=== PATIENT | male | born 1975 | race Caucasian/White ===

== ENCOUNTER 2020-02-02 22:30 | Emergency (ER) | payer SELFPAY ==
[2020-02-02 22:39] VITALS: BP 136/102; PULSE 105; RESP 18; TEMP 37; O2SAT 99
--- NOTE | 2020-02-02 22:51 | PC.NURSE ---
Pt states that is in no pain but hasnt slept in days . States he took 1mg clonazepam yesterday to help him sleep but it didnt work. He states he has slept only 2 hours per night for the past several nights.
--- NOTE | 2020-02-02 23:03 | ED.PSYCH ---
HPI - Psych General Chief Complaint: Psychiatric Symptoms <Singh Palm MD - Last Filed: 02/04/20 19:38> Stated Complaint: suicidal ideation <Singh Palm MD - Last Filed: 02/04/20 19:38> Time Seen by Provider: 02/02/20 22:59 <Singh Palm MD - Last Filed: 02/04/20 19:38> History of Present Illness HPI Narrative: 44 yo male with h/o Bipolar disorder presents c/o suicidal ideations. He reports that he has been having marital problems recently which have caused him to be depressed. Tonight he was at his house alone and drinking heavily and he was considering taking his 's klonapin in an attempt to kill himself. He denies following through on this plan. No past suicide attempts. He does not take his psychiatric medications regularly. History limited by intoxication <Singh Palm MD - Last Filed: 02/04/20 19:38> Related Data Allergies/Adverse Reactions: Allergies Allergy/AdvReac Type Severity Reaction Status Date / Time No Known Allergies Allergy Verified 07/04/19 07:33 <Singh Palm MD - Last Filed: 02/04/20 19:38> Review of Systems Review of Systems: All systems reviewed & are unremarkable except as noted in HPI and below <Singh Palm MD - Last Filed: 02/04/20 19:38> Constitutional: Constitutional: Denies fever(s) <Singh Palm MD - Last Filed: 02/04/20 19:38> Cardiovascular: Cardiovascular: Denies chest pain <Singh Palm MD - Last Filed: 02/04/20 19:38> Respiratory: Respiratory: Denies dyspnea <Singh Palm MD - Last Filed: 02/04/20 19:38> Psychiatric: Psychiatric: Reports depression and Reports suicidal ideation <Singh Palm MD - Last Filed: 02/04/20 19:38> [facility] Social History Social History: Social History Gender identity (if verbalized by the patient): Male <Singh Palm MD - Last Filed: 02/04/20 19:38> Exam Const: General: healthy appearing, no acute distress and alert <Singh Palm MD - Last Filed: 02/04/20 19:38> Orientation/consciousness: patient oriented x3 <Singh Palm MD - Last Filed: 02/04/20 19:38> HENMT: Head: normal to inspection <Singh Palm MD - Last Filed: 02/04/20 19:38> Resp: Effort & Inspection: normal respiratory effort <Singh Palm MD - Last Filed: 02/04/20 19:38> Auscultation: clear to auscultation bilaterally <Singh Palm MD - Last Filed: 02/04/20 19:38> Cardio: Rate: tachycardic <Singh Palm MD - Last Filed: 02/04/20 19:38> Rhythm: regular rhythm <Singh Palm MD - Last Filed: 02/04/20 19:38> GI: GI Palp: Yes Soft to palpation and No Tenderness to palpation present (GI) <Singh Palm MD - Last Filed: 02/04/20 19:38> Neuro: General: patient oriented x3 and moves all extremities <Singh Palm MD - Last Filed: 02/04/20 19:38> Speech: Abnormal speech present slurred <Singh Palm MD - Last Filed: 02/04/20 19:38> Extrem: General: normal to inspection <Singh Palm MD - Last Filed: 02/04/20 19:38> Course Reevaluation(s) Reevaluation #1: PAtient is up pacing the room. He states he is feeling anxious and shaky. He states he has history of anxiety but he thinks he may be detoxing. He denies history of Dts. I will order librium. He states he is not homicidal or suicidal <Tisha Simms MD - Last Filed: 02/03/20 18:13> Date: 02/03/20 <Tisha Simms MD - Last Filed: 02/03/20 18:13> Time: 08:01 <Tisha Simms MD - Last Filed: 02/03/20 18:13> Reevaluation #2: Patient was assessed by Crisis with safety contract. PAtient denies being suicidal. He has family/friend at bedside. PAtient is not tremulous at time. <Tisha Simms MD - Last Filed: 02/03/20 18:13> Date: 02/03/20 <Tisha Simms MD - Last Filed: 02/03/20 18:13> Time: 17:46 <Tisha Simms MD - Last File
[2020-02-02 23:46] LABS: Basophils Percent Auto 0.7 % (0.2-1.2); Eosinophils Absolute Auto 0.1 K/mm3 (0-0.3); Eosinophils Percent Auto 2.2 % (0-4.4); Hematocrit 47.8 % (42.0-52.0); Hemoglobin 16.8 g/dL (14.0-18.0); Immature Granulocyte Absolute 0.01 K/mm3 (0.00-0.031); Immature Granulocyte Percent A 0.2 % (0-0.5); Lymphocytes Absolute Auto 1.88 K/mm3 (0.9-3.2); Lymphocytes Percent Auto 32.3 % (18.3-44.2); Mean Corpuscular HGB Conc 35.1 g/dl (32-36); Mean Corpuscular Hemoglobin 31.6 pg (26-34); Mean Platelet Volume 8.3 fl (7.4-10.4); Monocytes Absolute Auto 0.4 K/mm3 (0.1-0.6); Monocytes Percent Auto 6.5 % (2.6-8.5); Neutrophils Absolute Auto 3.4 K/mm3 (1.3-6.7); Neutrophils Percent Auto 58.1 % (45.5-73.1); Platelet Count Result 131 k/mm3 (150-375); Red Blood Count 5.31 M/mm3 (4.6-6.20); Red Cell Distribution Width 13.5 % (11.5-14.5); White Blood Count 5.8 K/mm3 (4.5-10.0)
--- NOTE | 2020-02-02 23:53 | PC.NURSE ---
maria de jesus rich [phone] friend, give call with updates
[2020-02-02 23:55] LABS: Add Urine Microscopic? NO; Appearance Urine Clear (Clear); Bilirubin Urine Negative (Negative); Blood Urine Negative (Negative); Color Urine Yellow (Yellow); Glucose Urine UA Negative (Negative); Ketones Urine Negative (Negative); Leukocyte Esterase Ur Negative LEU/UL (Negative); Nitrate Urine Negative (Negative); Protein Urine Negative (Negative); Urobilinogen Urine Negative mg/dL (<2.0)
[2020-02-02 23:59] LABS: Alanine Aminotransferase 39 U/L (4-50); Albumin Level 4.7 g/dL (3.5-5.1); Alkaline Phosphatase 78 U/L (38-126); Aspartate Amino Transferase 43 U/L (17-59); Bilirubin,Total 0.4 mg/dL (0.2-1.3); Blood Urea Nitrogen 6 mg/dL (9-20); Calcium 8.6 mg/dL (8.4-10.2); Carbon Dioxide 24 mmol/L (22-30); Chloride 104 mmol/L (98-107); Estimated Glomerular Filt Rate > 60; Glucose 91 mg/dL (75-110); Potassium 3.7 mmol/L (3.4-5.0); Sodium 140 mmol/L (137-145)
[2020-02-03 00:13] LABS: Amphetamine Screen Urine Negative (Negative); Barbiturate Screen Urine Negative (Negative); Benzodiazepines Screen Urine Negative (Negative); Cannabinoid Screen Urine Negative (Negative); Cocaine Screen Urine Negative (Negative); Methadone Screen Urine Negative (Negative); Opiate Screen Urine Negative (Negative); Phencyclidine Screen Urine Negative (Negative)
[2020-02-03 00:20] LABS: Ethanol 356 mg/dL (<10)
[2020-02-03 00:30] LABS: Thyroid Stimulating Hormone 0.779 uIU/mL (0.465-4.680)
[2020-02-03 02:11] VITALS: BP 147/95; PULSE 94; RESP 14; O2SAT 99
[2020-02-03] MEDS: NICOTINE (*PBKC) 21 MG PATCH 1 PATCH TRANSDERM (04:57)
[2020-02-03 06:30] VITALS: BP 131/82; PULSE 77; RESP 20; O2SAT 99
[2020-02-03 07:25] VITALS: BP 145/99; PULSE 91; RESP 18; TEMP 36.5; O2SAT 98
--- NOTE | 2020-02-03 07:37 | PC.NURSE ---
This RN walked into pts room and found pt walking around in room. Pt states he is anxious and has a drinking problem. I asked pt if he wanted breakfast and he stated I don't think i could eat anything. Informed pt that if he needed anything to let me know.
--- NOTE | 2020-02-03 08:00 | ECG_ITS ---
Measurements Intervals [place] Rate: 75 P: 58 ND: 177 QRS: 20 QRSD: 90 T: 37 QT: 413 QTc: 462 Interpretive Statements SINUS RHYTHM INCOMPLETE RIGHT BUNDLE BRANCH BLOCK BASELINE WANDER- V2-V3 BORDERLINE ECG Electronically Signed On 02-05-2020 7:01:13 CDT by Uriel Ortiz D.O.
[2020-02-03] MEDS: CHLORDIAZEPOXIDE 25 MG CAPSULE 50 MG PO ×2 (08:11→13:54)
--- NOTE | 2020-02-03 08:30 | PC.NURSE ---
Pt requested to use phone to call friend.
--- NOTE | 2020-02-03 10:23 | PC.NURSE ---
Pt standing at door, asked when he thinks he will be able to go home. I informed pt that we will redraw his blood alcohol at around 1400 to see where it is at. Pt stated ok
--- NOTE | 2020-02-03 10:47 | PC.NURSE ---
Support person here to see pt.
[2020-02-03] MEDS: ONDANSETRON HCL ODT 4 MG TABLET 8 MG PO (13:54)
--- NOTE | 2020-02-03 14:00 | PC.NURSE ---
Pt standing in room eating lunch with friend in room. Sitter still at bedside.
--- NOTE | 2020-02-03 14:00 | PC.NURSE ---
Crisis is here to see pt
[2020-02-03 14:41] LABS: Ethanol < 10 mg/dL (<10)
--- NOTE | 2020-02-03 15:15 | PC.NURSE ---
Called crisis and spoke with Saida in regards to pt. Sadia states that she will send someone to talk to pt.
[2020-02-03 18:12] VITALS: BP 150/86; PULSE 96; RESP 18; TEMP 37.2; O2SAT 99
[2020-02-03 18:13] VITALS: BP 150/86; PULSE 96; RESP 18; TEMP 37.2; O2SAT 100
== END 2020-02-03 18:14 | disposition home or self-care (01) ==
PROVIDERS: Emergency Medicine; Emergency Provider General Practice
DX: F10.239 Alcohol dependence with withdrawal, unspecified (principal); F10.229 Alcohol dependence with intoxication, unspecified; Y90.8 Blood alcohol level of 240 mg/100 ml or more; I45.10 Unspecified right bundle-branch block
CPT/HCPCS: 36415; 80053; 80307; 81003; 84443; 85025; 93005; 99284; A9270

== ENCOUNTER 2022-05-21 17:25 | Emergency (ER) | payer OTHER, SELFPAY ==
[2022-05-21 17:35] VITALS: BP 161/98; PULSE 83; RESP 18; TEMP 36.7; O2SAT 100
--- NOTE | 2022-05-21 17:45 | ED.DENTAL ---
HPI - Dental/Oral General Chief complaint: Dental/Oral Stated complaint: Toothache Lt Side Source: patient History of Present Illness HPI Narrative: This is a 46-year-old male who presented to urgent care with complaints of left lower tooth pain. According to patient he started experiencing left lower tooth pain a couple of days ago. He does have a dental appointment. His dentist recommended that he come to our urgent care to get antibiotic treatment for possible dental abscess. The patient denies SOB, CP, palpitation, extremity numbness, lightheadedness, dizziness, constipation, diarrhea, chills, or fever. Patient reports pain to the 18th tooth MD Complaint: tooth pain Related Data Home Medications Medication Instructions Recorded Confirmed carbamazepine 200 mg 200 mg PO DAILY 05/21/22 05/21/22 capsule,extended release [id number] naltrexone 50 mg tablet 50 mg PO BID 05/21/22 05/21/22 olanzapine 5 mg disintegrating 5 mg PO DAILY 05/21/22 05/21/22 tablet quetiapine 200 mg tablet 200 mg PO DAILY 05/21/22 05/21/22 Allergies Allergy/AdvReac Type Severity Reaction Status Date / Time No Known Allergies Allergy Verified 05/21/22 17:32 Review of Systems Review of Systems: A 14 organ system Review of Systems was performed and pertinent positives included in the HPI, otherwise remaining ROS is negative. [facility] Social History Social History Gender identity (if verbalized by the patient): Male Exam Narrative: GENERAL: This is a well-nourished, well-developed patient, in no apparent distress. HEAD: normocephalic, atraumatic. EYES: PERRL. Sclera clear/white. Vision is grossly intact. EARS: External ears normal, auditory canals clear and without drainage, TMs normal without perforation. Hearing grossly intact. NOSE: External nose normal with no obvious nasal discharge, nares without redness, no rhinorrhea. THROAT: Mucous membranes moist, posterior pharynx clear. NECK: Neck supple, non-tender without lymphadenopathy, masses or thyromegaly. CARDIOVASCULAR: Regular rate and rhythm without murmurs, gallops, or rubs. RESPIRATORY: Clear to auscultation. Breath sounds equal bilaterally. No wheezes, rales, or rhonchi. GASTROINTESTINAL: Abdomen soft, non-tender, nondistended. Bowel sounds are active. No hepato-splenomegaly, or palpable masses. No guarding. SKIN: warm, intact with no suspicious lesions or rash, good texture and turgor. NEURO: awake, alert, and oriented to person, place and time. There were no obvious focal neurologic abnormalities. EXTREMITIES: Normal range of motion. No edema. No calf tenderness. Course Course Emergency Course: Patient will receive Augmentin x10 days. He was also given hydrochlorothiazide for hypertension. Patient instructed to take his blood pressure daily and give report to his primary care physician for possible med adjustment. Patient does not currently have a primary care physician he was given a list of primary care physician. Level of Care: Express Care Visit Vital Signs Vital signs: Vital Signs Temperature 98.0 F 05/21/22 17:35 Pulse Rate 83 05/21/22 17:35 Respiratory Rate 18 05/21/22 17:35 Blood Pressure 161/98 H 05/21/22 17:35 Pulse Oximetry 100 05/21/22 17:35 Oxygen Delivery Room Air 05/21/22 17:35 Temperature 98.0 F 05/21/22 17:35 Pulse Rate 83 05/21/22 17:35 Respiratory Rate 18 05/21/22 17:35 Blood Pressure 161/98 H 05/21/22 17:35 Pulse Oximetry 100 05/21/22 17:35 Oxygen Delivery Room Air 05/21/22 17:35 MDM - Dental/Oral Differential Diagnosis Differential diagnosis: Likely gingival abscess, dental caries, toothache, dental abscess and fracture of tooth Discharge Plan Discharge Clinical Impression: Toothache, Dental abscess Patient Disposition: Home, Self-Care Condition: Stable Instructions: Antibiotic Form, Toothache (ED) Additional Instructions:
== END 2022-05-21 17:55 | disposition home or self-care (01) ==
PROVIDERS: Emergency Provider Nurse Practitioner
DX: K08.89 Other specified disorders of teeth and supporting structures (principal); K04.7 Periapical abscess without sinus
CPT/HCPCS: 99213; G0463